=== PATIENT | female | born 1970 | race Caucasian/White ===

== ENCOUNTER 2017-12-23 09:41 | Emergency (ER) | payer OTHER ==
[~2017-12-23] VITALS: Ht 172.7 cm; Wt 88.5 kg
[2017-12-23 10:32] LABS: ABSOLUTE BASOPHILS 0.1 thou/uL (0.0-0.2); ABSOLUTE EOSINOPHILS 0.2 thou/uL (0.0-0.7); ABSOLUTE LYMPHOCYTES 3.3 thou/uL (0.8-5.3); ABSOLUTE MONOCYTES 0.6 thou/uL (0.0-1.2); ABSOLUTE NEUTROPHILS 4.8 thou/uL (1.6-8.1); BASOPHILS 0.6 %; HEMATOCRIT 44.4 % (37.0-47.0); HEMOGLOBIN 15.5 gm/dL (12.0-15.0); LYMPHOCYTES 37.4 %; MCH 29.6 pg (26.0-34.0); MCHC 34.9 g/dL (28.0-37.0); MCV 84.9 fL (80.0-100.0); MONOCYTES 6.2 %; MPV 7.5 fl. (7.2-11.1); NUCLEATED RBCS 0 /100WBC; PLATELET COUNT* 298 thou/uL (150-400); POLYS 53.8 %; RBC 5.24 mil/uL (4.20-5.00); RDW-CV 12.9 % (10.5-14.5); WBC 8.9 thou/uL (4.0-11.0)
[2017-12-23 10:37] LABS: ANION GAP 7 mmol/L (7-16); BUN 8 mg/dL (7-18); CALCIUM 8.9 mg/dL (8.5-10.1); CHLORIDE 106 mmol/L (98-107); CO2 27 mmol/L (21-32); CREATININE 0.8 mg/dL (0.6-1.3); GLUCOSE 101 mg/dL (70-99); POTASSIUM 3.5 mmol/L (3.5-5.1); SODIUM 140 mmol/L (136-145)
[2017-12-23 10:39] LABS: URINE BILIRUBIN NEGATIVE (Negative); URINE BLOOD NEGATIVE (Negative); URINE CLARITY CLEAR; URINE COLOR YELLOW; URINE GLUCOSE-RANDOM NEGATIVE (Negative); URINE KETONES NEGATIVE (Negative); URINE LEUKOCYTES-REFLEX NEGATIVE (Negative); URINE NITRITE-REFLEX NEGATIVE (Negative); URINE PROTEIN NEGATIVE (Negative); URINE SPECIFIC GRAVITY <= 1.005 (1.005-1.030); URINE UROBILINOGEN 0.2 E.U./dl (0.2-1.0)
[2017-12-23 10:44] LABS: ALBUMIN 3.6 g/dL (3.4-5.0); ALKALINE PHOSPHATASE 70 U/L (46-116); LIPASE 120 U/L (73-393); SGOT 14 U/L (15-37); SGPT 20 U/L (30-65); TOTAL BILIRUBIN 0.6 mg/dL (<0.1-1.0); TOTAL PROTEIN 7.1 g/dL (6.4-8.2); TROPONIN-I LEVEL <0.06 ng/mL (<0.06)
[2017-12-23] MEDS ORDERED: CARAFATE 1 GM TA1 G1 PO (11:44)
[2017-12-23] MEDS ORDERED: ZOFRAN4 MG PO (11:44)
[2017-12-23] MEDS ORDERED: PEPCID20 MG PO (11:44)
[2017-12-23 12:13] VITALS: BP 150/99
--- NOTE | 2017-12-23 17:51 | EKG ---
[place] [address] ELECTROCARDIOGRAM REPORT Name: CRIS WEAVER Room: [facility]#: [id number] Admission: 12/23/17 Attend Phys: Discharge: 12/23/17 Date of : 70 Report #: [id number] THIS REPORT FOR: //name// [facility] ED Test Date: 2017-12-23 Test Time: 10:14:11 Pat Name: CRIS WEAVER Department: Room: Gender: F Set Up Operator Tool: RILEY BRAXTON : 1970 Requested By: Chano Farley Order Number: [id number] : Suraj Rachel Measurements Intervals [place] Rate: 64 P: 60 UT: 172 QRS: -11 QRSD: 101 T: 31 QT: 393 QTc: 406 Interpretive Statements Sinus rhythm Probable left atrial enlargement Abnormal R-wave progression, late transition No previous ECG available for comparison Electronically Signed On 12-23-2017 17:51:17 CDT by Suraj Rachel [email or web address] <ELECTRONICALLY SIGNED> By: Suraj Rachel MD, [facility] 12/23/17 1751 1014 1014 Suraj Rachel MD, FACC /EPI
== END 2017-12-23 12:13 | disposition home or self-care (01) ==
LOC: M.ERS 09:41
PROVIDERS: Emergency Medicine Emergency Medical Services
DX: K29.70 Gastritis, unspecified, without bleeding (principal); Z90.49 Acquired absence of other specified parts of digestive tract

== ENCOUNTER → 2018-01-05 | Outpatient (CLI) | payer OTHER ==
[~2018-01-05] MED LIST: CARAFATE 1 GM TA1 G1 PO; PEPCID20 MG PO; ZOFRAN4 MG PO
== END ==
LOC: M.ULTRA 08:00
DX: R10.11 Right upper quadrant pain (principal)